=== PATIENT | female | born 1960 | race Two or more races ===

== ENCOUNTER 2018-05-17 13:46 | Outpatient (CLI) | payer OTHER ==
[~2018-05-17 13:46] MED LIST: ADULT ASPIRIN81 MG; ALL DAY ALLERGY10 M1; INDAPAMIDE2.5 MG; LEVAQUIN750 MG PO; NORVASC5 MG PO; SYNTHROID50 MCG; TOPROL XL50 M1; ZYNCOF PO
== END 2018-05-17 13:58 | disposition home or self-care (01) ==
LOC: RAD 501 13:46
DX: E03.8 Other specified hypothyroidism (principal); E66.8 Other obesity; F41.8 Other specified anxiety disorders; I73.89 Other specified peripheral vascular diseases; J20.9 Acute bronchitis, unspecified; M54.5 Low back pain; M89.9 Disorder of bone, unspecified

== ENCOUNTER 2020-10-30 08:08 | Outpatient (CLI) | payer OTHER | END 2020-10-30 08:10 | disposition home or self-care (01) | LOC: PPH VACUNA 08:08 | PROVIDERS: ATTEND Emergency Medicine Pediatric Emergency Medicine | DX: Z23 Encounter for immunization (principal) ==